=== PATIENT | female | born 1955 | race Caucasian/White ===

== ENCOUNTER 2018-08-07 09:50 | Inpatient (IN) | payer OTHER ==
[~2018-08-07] VITALS: Ht 165.1 cm; Wt 69.6 kg
[2018-08-07] MEDS ORDERED: SODIUM CHLORIDE 0.9% 1,000 ML IV ONE ×2 (10:43)
[2018-08-07] MEDS ORDERED: PIPERACILLIN-TAZOB 3.375GM 100 ML IV ONE (10:45)
[2018-08-07 10:52] LABS: Basophils # (auto) 0 uL; Basophils % (auto) 0.7 % (0.0-2.0); Eosinophils # (auto) 0.2 uL; Eosinophils % (auto) 3.5 % (0.0-7.0); Hematocrit 36.3 % (36.0-46.0); Lymphocytes # (auto) 1.1 uL; Lymphocytes % (auto) 18.7 % (10.0-50.0); Mean Corpuscular Hemoglobin 29.2 pg (28.0-32.0); Mean Corpuscular Hgb Conc. 33.1 g/dL (32.0-36.0); Mean Corpuscular Volume 88.2 fL (80.0-100.0); Monocytes # (auto) 0.7 uL; Monocytes % (auto) 11.2 % (0.0-12.0); Neutrophils % (auto) 65.9 % (37.0-80.0); Platelet Count (auto) 319 10^3/uL (140-450); Red Blood Cells 4.12 10^6/uL (4.0-5.20); Red Cell Distribution Width 14.1 % (11.8-14.3); White Blood Cell 6.1 10^3/uL (4.4-10.8)
[2018-08-07 11:13] LABS: Alanine Aminotransferase 29 U/L (13-56); Albumin 3.7 g/dL (3.4-5.0); Anion Gap 9 (5-15); Aspartate Aminotransferase 27 U/L (15-37); BUN/Creatinine Ratio 19.6; Blood Urea Nitrogen 20 mg/dL (7-18); Calcium 9.8 mg/dL (8.5-10.1); Carbon Dioxide 25 mmol/L (21-32); Chloride 106 mmol/L (98-107); GFR African American 70 mL/min; GFR Non-African American 58 mL/min; Glucose 94 mg/dL (74-106); Sodium 140 mmol/L (136-145)
[2018-08-07 11:18] LABS: Alkaline Phosphatase 83 U/L (45-117); Bilirubin, Total 0.4 mg/dL (0.2-1.0); Total Protein 7.6 g/dL (6.4-8.2)
[2018-08-07] MEDS ORDERED: PROMETHAZINE HCL 25 MG/ML 1ML IV PRN (11:45)
[2018-08-07] MEDS ORDERED: KETOROLAC TROMETH 30 MG/ML 1ML VIAL IV PRN (11:45)
[2018-08-07] MEDS ORDERED: LEVOFLOXACIN 500MG 100 ML IV ONE (11:45)
[2018-08-07] MEDS ORDERED: ACETAMINOPHEN 500 MG TAB PO PRN (11:45)
[2018-08-07] MEDS ORDERED: LACTULOSE 20Gm/30ML SOLN PO PRN (11:45)
[2018-08-07] MEDS ORDERED: traMADol HCL 50 MG TAB PO PRN (11:45)
[2018-08-07] MEDS ORDERED: TEMAZEPAM 15 MG CAP PO PRN (11:45)
[2018-08-07 11:58] LABS: INR 0.95 (0.9-1.15); Partial Thromboplastin Time 27.2 sec (23.64-32.05)
[2018-08-07 12:24] LABS: Urine WBC None Seen /hpf (0 - 5)
[2018-08-07 13:00] LABS: Urine Bacteria NONE SEEN /hpf (None Seen); Urine Blood Negative /uL (Negative); Urine Specific Gravity 1.003 (1.001-1.035)
[2018-08-07] MEDS: SODIUM CHLORIDE 0.9% 1,000 ML IV SCH ×2 (13:10→21:42)
[2018-08-07] MEDS: ENOXAPARIN SOD 40 MG/0.4 ML SYRINGE SC SCH (13:10)
--- NOTE | 2018-08-07 13:30 | NUR ---
MS admit from ER BOBOASAEL admitted to [facility] after SBAR received. Patient oriented to Maddie doyle RN, unit, room, bed, and unit policies regarding patient care and visiting hours. Patient weighed by bedscale and encouraged to call if they need something. All questions and concerns addressed, patient verbalized understanding.
[2018-08-07] MEDS: CLINDAMYCIN 600MG IV 50 ML IV SCH ×2 (13:44→21:58)
[2018-08-07] MEDS ORDERED: ASPI-231 PO (13:52)
[2018-08-07] MEDS ORDERED: LISI10TA6 PO (13:52)
[2018-08-07] MEDS ORDERED: ETOD400T PO (13:52)
[2018-08-07] MEDS ORDERED: METO-158 PO (13:52)
[2018-08-07 17:35] VITALS: BP 108/68
--- NOTE | 2018-08-07 18:34 | NUR ---
END OF SHIFT PATIENT RESTING IN BED. NO S/S OF DISTRESS. INSTRUCTED PATIENT TO CALL PRN. BED IN LOWEST LOCKED POSITION, CALL LIGHT WITHIN REACH. ENDORSED CARE TO JAROD GONZALES.
--- NOTE | 2018-08-07 19:35 | NUR ---
Opening Shift Note Assumed care of patient, awake and alert. No S/S of distress/SOB or pain. Noted blister wound on left great toe due to insect bite (as per patient). Intact and non draining. Discussed on POC and to call for assist PRN, patient verbalized understanding, call light within reach, will continue to monitor for changes Q1hr and PRN.
[2018-08-07 20:00] VITALS: BP 116/69
[2018-08-07 21:30] VITALS: BP 116/69
--- NOTE | 2018-08-07 21:45 | NUR ---
Patient called and blister wound on left great toe accidentally broke open. Cleansed wound with wound cleanser and covered with optifoam and wrapped with kerlix, patient tolerated well
[2018-08-07] MEDS: FAMOTIDINE 20 MG TAB PO SCH (21:58)
[2018-08-07] MEDS: METOPROLOL TARTRATE 25 MG TAB PO SCH (22:00)
--- NOTE | 2018-08-07 22:00 | NUR ---
Per patient, pictures were already taken by dayshift RN
--- NOTE | 2018-08-07 22:00 | NUR ---
Patient refused Metoprolol dose at this time. Per patient, she already took it around 1700 from her home medicine
[2018-08-08 05:00] VITALS: BP 156/93
[2018-08-08] MEDS: CLINDAMYCIN 600MG IV 50 ML IV SCH ×3 (05:33→21:36)
[2018-08-08 06:15] VITALS: BP 123/67
[2018-08-08] MEDS: SODIUM CHLORIDE 0.9% 1,000 ML IV SCH ×2 (07:42→17:32)
[2018-08-08 09:04] VITALS: BP 116/76
[2018-08-08] MEDS: FAMOTIDINE 20 MG TAB PO SCH ×2 (09:23→21:36)
[2018-08-08] MEDS: METOPROLOL TARTRATE 25 MG TAB PO SCH ×2 (09:23→18:19)
[2018-08-08] MEDS: LEVOFLOXACIN 500MG 100 ML IV SCH (09:23)
[2018-08-08] MEDS: ENOXAPARIN SOD 40 MG/0.4 ML SYRINGE SC SCH (09:24)
[2018-08-08] MEDS ORDERED: LISINOPRIL 10 MG TAB PO SCH ×2 (10:00→22:00)
--- NOTE | 2018-08-08 11:00 | NUR ---
WOUND CLEANSED WITH SALINE PAT DRY, WOUND CULTURE DONE AND COVERED WITH OPTIFOAM.
--- NOTE | 2018-08-08 11:05 | NUR ---
PT SEEN BY DR. LEON HE ORDERED PODIATRY CONSULT.
[2018-08-08 12:45] VITALS: BP 131/77
[2018-08-08 16:47] VITALS: BP 135/81
--- NOTE | 2018-08-08 19:40 | NUR ---
Opening Shift Note Assumed care of patient, awake and alert. No S/S of distress/SOB or pain. Dressing to left toe intact. Updated on POC and to call for assist PRN, patient verbalized understanding, call light within reach, will continue to monitor for changes Q1hr and PRN.
[2018-08-08 22:53] VITALS: BP 130/83
[2018-08-09] MEDS: SODIUM CHLORIDE 0.9% 1,000 ML IV SCH (03:42)
--- NOTE | 2018-08-09 05:00 | NUR ---
Noted no wound pictures in the chart. Pictures now taken on the left great toe wound. Cleansed it, patted dry and covered with optifoam, patient tolerated well
[2018-08-09 05:36] VITALS: BP 114/78
--- NOTE | 2018-08-09 06:15 | NUR ---
Patient requested to take Metoprolol after breakfast, will endorse to bobby OLIVERA
[2018-08-09] MEDS: CLINDAMYCIN 600MG IV 50 ML IV SCH ×2 (06:45→14:25)
--- NOTE | 2018-08-09 08:00 | NUR ---
ASSESSMENT LT FT WITH DRESSING GREAT TOE. GD PEDAL PULSE, NO EDEMA. STATES FEELS MUCH BETTER
--- NOTE | 2018-08-09 09:00 | NUR ---
UP AMB TO BR WITHOUT DIFFICULTY
[2018-08-09 09:18] VITALS: BP 133/79
--- NOTE | 2018-08-09 09:30 | NUR ---
DR. LEON IN. STATED IF CLEAR BY WOUND CARE AND DR. ROMERO, PT CAN BE DISCHARGED.
[2018-08-09] MEDS ORDERED: ENOXAPARIN SOD 40 MG/0.4 ML SYRINGE SC SCH (10:00)
[2018-08-09] MEDS: METOPROLOL TARTRATE 25 MG TAB PO SCH (10:07)
[2018-08-09] MEDS: ENOXAPARIN SOD 40 MG/0.4 ML SYRINGE SC SCH (10:08)
[2018-08-09] MEDS: LEVOFLOXACIN 500MG 100 ML IV SCH (10:08)
[2018-08-09] MEDS: FAMOTIDINE 20 MG TAB PO SCH (10:08)
--- NOTE | 2018-08-09 11:00 | NUR ---
WOUND CARE IN. WOUND CLEAN, NO DRAINAGE WITH SURROUNDING ECCHYMOSIS
--- NOTE | 2018-08-09 11:02 | NUR ---
WOUND CARE NOTE: Wound care in to see patient per wound care request regarding "Great toe wound" that are noted present on admission. Bedside nurse took photograph of patient's wound upon admission for reference. Patient is 62 y/o female with admitting diagnosis of Left Great toe Cellulitis. Patient has history of Htn. Patient is resting in bed in Rm 214A. She's awake, alert and fully oriented. Patient denies any pain at this time. She's ambulatory and self turn and reposition. Her current Gordy score is 22. Noted patient's L medial foot and base of L great toe has 3.5x3.5cm erythremic area with mild edema. There's 2cm linear skin tear at dorsal aspect of L great toe base. Scant serous drainage noted,no odor noted.Wound culture specimen reported taken and sent to lab for processing. Patient reported that she's at her backyard, on barefoot when she felt a sting to her L foot, felt like bitten by insect. She then noted redness and edema to her L foot. Patient denies history of DM. Cleansed patient's L great toe wound with wound cleanser, Patted dry with gauze,applied Thera honey gel, covered with Opti foam and secured dressing with CoBan. Patient tolerated well and denies any other wound. RECOMMENDATION: Daily/PRN dressing change to Lt great toe wound per MD order, Podiatry consult, redistribute pressure points with pillows, elevate affected extremity on pillows, continue monitoring by wound care while patient is hospitalized. Addendum: 08/09/18 at 1450 by Taya Delarosa RN Amended: Links added.
[2018-08-09 13:03] VITALS: BP 145/90
--- NOTE | 2018-08-09 13:30 | NUR ---
DR. ROMERO IN FOR CONSULT CLEARED TO GO HOME. TO SEE HIM IN 2 DAYS
--- NOTE | 2018-08-09 15:00 | NUR ---
DR. LEON NOTIFIED OF FANOUS CLEARANCE. DC ORDER WRITTEN. AWARE PT IS GOING ON VACATION WEDNESDAY AND CAN DO HER OWN WOUND CARE. PT INFORMED ME SHE ALREADY HAS AN APPT WITH HER PMD, ANA, ON WednesdayAUGUST 22 (THE WEDNESDAY FOLLOWING THE DAY SHE COMES HOME FROM VACATION).
[2018-08-09 15:18] VITALS: BP 145/90
--- NOTE | 2018-08-09 15:43 | NUR ---
GIVEN TEACHING REGARDING WOUND CARE, USING THERAPEUTIC HONEY COVERED WITH OPTIFOAM AND COBAN. RETURN DEMONSTRATION GIVEN.
--- NOTE | 2018-08-09 16:00 | NUR ---
SUPPLIES FOR WOUND CARE DRESSING CHANGES: THERAPEUTIC HONEY, OPTIFOAM, COBAN AND Q-TIPS. EXPRESSED UNDERSTANDING. QUESTIONS ANSWERED
--- NOTE | 2018-08-09 16:10 | NUR ---
IV'S DC FROM LT AC ND LT FOREARM. BOTH CATHS INTACT, SITES CLEAN, NO REDNESS OR DRAINAGE. COVERED WITH 2X2 AND COBAN
--- NOTE | 2018-08-09 16:25 | NUR ---
DISCHARGE NOTE DISCHARGE INSTRUCTIONS GIVEN. QUESTIONS ANSWERED, UNDERSTANDING VERBALIZED. HAS ALL SUPPLIES FOR WOUND CARE. ASSISTED VIA WC TO PRIVATE CAR TO DRIVE HERSELF HOME. DENIES C/O PAIN, SOB. GD LT PEDAL PULSE. WOUND GRANULATING, NO CHANGE IN SURROUNDING ECCHYMOSIS.
== END 2018-08-09 16:25 | disposition home or self-care (01) | DRG 603 ==
LOC: ER 09:50 → OVERFLOW 11:46 → CENTRAL 14:49
PROVIDERS: ADMIT Internal Medicine; ATTEND Internal Medicine
DX: L03.032 Cellulitis of left toe (principal); I10 Essential (primary) hypertension; M19.90 Unspecified osteoarthritis, unspecified site; S90.462A Insect bite (nonvenomous), left great toe, initial encounter; W57.XXXA Bitten or stung by nonvenomous insect and other nonvenomous arthropods, initial encounter; Y93.89 Activity, other specified; Y92.89 Other specified places as the place of occurrence of the external cause; Z80.1 Family history of malignant neoplasm of trachea, bronchus and lung; Z82.49 Family history of ischemic heart disease and other diseases of the circulatory system; Z83.3 Family history of diabetes mellitus; Y99.8 Other external cause status
CPT/HCPCS: 36415; 71045; 73700; 80053; 81001; 83605; 84484; 85025; 85610; 85652; 85730; 87040; 87205; 94761; 96372; 96374; 96375; G0378; J1956; J2543; J3490

== ENCOUNTER 2019-03-23 21:32 | Emergency (ER) | payer OTHER ==
[~2019-03-23] VITALS: Ht 162.6 cm; Wt 65.8 kg
[~2019-03-23 21:32] MED LIST: ASPI-231 PO; ETOD400T3 PO; LISI10TA6 PO; METO-158 PO
[2019-03-23 22:24] LABS: Basophils # (auto) 0 uL; Basophils % (auto) 0.4 % (0.0-2.0); Eosinophils # (auto) 0.2 uL; Eosinophils % (auto) 2.9 % (0.0-7.0); Hematocrit 35.2 % (36.0-46.0); Hemoglobin 11.9 g/dL (12.2-16.2); Lymphocytes # (auto) 1.2 uL; Lymphocytes % (auto) 18.6 % (10.0-50.0); Mean Corpuscular Hemoglobin 29.4 pg (28.0-32.0); Mean Corpuscular Hgb Conc. 33.7 g/dL (32.0-36.0); Mean Corpuscular Volume 87.1 fL (80.0-100.0); Monocytes # (auto) 0.6 uL; Monocytes % (auto) 9.9 % (0.0-12.0); Neutrophils # (auto) 4.5 uL; Neutrophils % (auto) 68.2 % (37.0-80.0); Platelet Count (auto) 361 10^3/uL (140-450); Red Blood Cells 4.04 10^6/uL (4.0-5.20); Red Cell Distribution Width 14.3 % (11.8-14.3); White Blood Cell 6.5 10^3/uL (4.4-10.8)
[2019-03-23 22:41] LABS: Albumin 3.7 g/dL (3.4-5.0); BUN/Creatinine Ratio 23.9; Calcium 9.4 mg/dL (8.5-10.1); Magnesium 2.2 mg/dL (1.6-2.6); Potassium 4.4 mmol/L (3.5-5.1)
[2019-03-23 22:43] LABS: Bilirubin, Total 0.3 mg/dL (0.2-1.0); Total Protein 7.9 g/dL (6.4-8.2)
[2019-03-24 00:25] LABS: Urine Bacteria NONE SEEN /hpf (None Seen); Urine Blood Negative /uL (Negative); Urine Specific Gravity 1.002 (1.001-1.035); Urine WBC <1 /hpf (0 - 5)
[2019-03-24 04:00] VITALS: BP 122/74
== END 2019-03-24 04:00 | disposition home or self-care (01) ==
LOC: ER 21:34
DX: R07.89 Other chest pain (principal); R42 Dizziness and giddiness; R53.1 Weakness; I10 Essential (primary) hypertension
CPT/HCPCS: 36415; 70450; 71045; 80053; 81001; 83735; 84484; 85025; 93005